=== PATIENT | female | born 1955 | race Asian ===

== ENCOUNTER 2022-01-05 17:27 | Emergency (ER) | payer OTHER ==
[~2022-01-05] VITALS: Ht 167.6 cm; Wt 125.6 kg
[2022-01-05 17:27] VITALS: TEMP 97.2
[2022-01-05 17:53] LABS: PLATELET COUNT 268 K/uL (152-353)
[2022-01-05 18:06] LABS: POTASSIUM 4.1 mmol/L (3.6-5.2)
[2022-01-05 20:00] VITALS: BP 139/88
[2022-01-06] MEDS ORDERED: RISPERDAL12.5 MG IM (09:03)
[2022-01-06] MEDS ORDERED: DIPH50IN INJ (09:05)
[2022-01-06] MEDS ORDERED: HALO5INJ3 INJ (09:07)
== END 2022-01-05 20:00 | disposition still patient (30) ==
LOC: ED 17:27
PROVIDERS: Emergency Medicine
DX: F25.8 Other schizoaffective disorders (principal); R45.1 Restlessness and agitation; I10 Essential (primary) hypertension; Z11.52 Encounter for screening for COVID-19; Z04.6 Encounter for general psychiatric examination, requested by authority
CPT/HCPCS: 80053; 85027; 87635; 93005; 99282; U0003

== ENCOUNTER 2022-03-04 20:29 | Emergency (ER) | payer OTHER ==
[~2022-03-04] VITALS: Ht 160 cm; Wt 99.8 kg
[~2022-03-04 20:29] MED LIST: CHOL100034 PO; DIPH50IN INJ; HALO5INJ3 INJ; MAGNSUS68 PO; RISP0.25 PO; RISP50IN INJ; RISPERDAL12.5 MG IM
[2022-03-04 21:01] LABS: PLATELET COUNT 282 K/uL (152-353)
[2022-03-04 21:10] LABS: POTASSIUM 4.2 mmol/L (3.6-5.2)
[2022-03-04 22:45] VITALS: BP 155/88; TEMP 98
[2022-03-05] MEDS ORDERED: RISP0.5T2 PO (10:20)
== END 2022-03-04 22:45 | disposition still patient (30) ==
LOC: ED 20:29
PROVIDERS: Emergency Medicine
DX: R46.89 Other symptoms and signs involving appearance and behavior (principal); R44.2 Other hallucinations; Z11.52 Encounter for screening for COVID-19; Z04.6 Encounter for general psychiatric examination, requested by authority
CPT/HCPCS: 36415; 80053; 81000; 85027; 87635; 93005; 99283; U0003

== ENCOUNTER 2022-05-04 22:30 | Emergency (ER) | payer OTHER ==
[~2022-05-04] VITALS: Ht 160 cm; Wt 105.2 kg
[~2022-05-04 22:30] MED LIST changes: +RISP0.5T2 PO
[2022-05-04 22:56] LABS: PLATELET COUNT 269 K/uL (152-353)
[2022-05-04 23:31] LABS: POTASSIUM 4.3 mmol/L (3.6-5.2)
[2022-05-05 01:05] VITALS: BP 136/75; TEMP 98.9
[2022-05-05] MEDS ORDERED: RISP25IN IM (08:48)
[2022-05-05] MEDS ORDERED: RISP0.5T2 PO (08:49)
[2022-05-05] MEDS ORDERED: DIPH50IN IM (08:50)
[2022-05-05] MEDS ORDERED: HALO5INJ3 IM (08:51)
== END 2022-05-05 01:05 | disposition still patient (30) ==
LOC: ED 22:30
PROVIDERS: Emergency Medicine
DX: F33.9 Major depressive disorder, recurrent, unspecified (principal); U07.1 COVID-19; Z04.6 Encounter for general psychiatric examination, requested by authority
CPT/HCPCS: 36415; 80053; 85027; 87635; 93005; 99283; U0003